=== PATIENT | female | born 1975 | race Caucasian/White ===

== ENCOUNTER 2016-08-11 10:10 | Emergency (ER) ==
[2016-08-11 10:22] VITALS: BP 138/81
--- NOTE | 2016-08-11 10:49 | PROVIDER DOCUMENTATION ---
HPI-Respiratory General - General Chief Complaint: Shortness of Breath Stated Complaint: FLU LIKE SX Time Seen by Provider: 08/11/16 10:37 Source: patient Allergies/Adverse Reactions: Patient Allergies Allergy/AdvReac Type Severity Reaction Status Date / Time No Known Allergies Allergy Verified 12/09/14 16:03 Home Medications: Hydrocodone/Acetaminophen [Noble 7.5-325 Tablet] 7.5 mg PO 04/11/16 Phentermine HCl [Adipex-P] 04/11/16 - History of Present Illness-Resp Nature of Presenting Problem: Pt is 41 y/o F presents to the ED with SOB. Pt states she has had F/chills, PND , and nasal congestion. Pt denies sore throat. Pt denies prior pneumonia. Quality of Pain: reports: aching Severity in ED: reports: mild Onset/Duration: reports: 4 days ago Timing: reports: still present, intermittent Exposure: reports: unknown cause Cough Quality/Degree: reports: moderate, productive cough, sputum Episode Frequency: frequent episodes Current Respiratory Medication Therapy: Initiated see nurses note Modifying Factors: improves with: nothing Associated Symptoms: reports: cough, fever/chills, nasal congestion, shortness of breath, wheezing. denies: earache, headache, sore throat Similar Symptoms Previously?: Yes Recently seen or treated by another doctor?: No Review of Systems - Adult - REVIEW OF SYSTEMS - ADULT Constitutional: reports: chills, fever Eyes: denies: blurred vision, double vision Ears, Nose, Mouth & Throat: reports: sinus problem (congestion), hoarseness. denies: ear pain, nose pain, throat pain Cardiovascular: reports: irregular heart rate (tachy). denies: chest pain, heart murmur Respiratory: reports: cough, shortness of breath, wheezing Gastrointestinal: denies: abdominal pain, diarrhea, nausea, vomiting Genitourinary: denies: dysuria, hematuria Musculoskeletal: denies: bone pain, joint pain, neck pain Integumentary: denies: hives, itching Neurological: denies: dizziness/vertigo, headache/migraines Psychiatric: reports: no symptoms reported Endocrine: reports: no symptoms reported Hematologic/Lymphatic: reports: no symptoms reported Allergic/Immunologic: reports: no symptoms reported All Other Systems: Reviewed and Negative Past History - Adult - PAST MEDICAL HISTORY-ADULT Review of Records: reports: Nursing Assessment Review, Medications Reviewed, Social history reviewed & non-contributory. Major Childhood Illnesses: reports: denies history Cardiovascular: reports: HTN Respiratory: reports: denies history Gastrointestinal: reports: denies history Obstetrical/Gynecological: reports: denies history Genitourinary: reports: denies history Musculoskeletal: reports: denies history Neurological: reports: denies history Endocrine/Immune: reports: denies history Other Conditions: reports: denies history - PRIOR SURGERIES/PROCEDURES Surgical/Procedure History: reports: hysterectomy, tonsillectomy, orthopedic ( extremity) (right foot) - IMMUNIZATION STATUS Childhood Immunizations: See Nurse Assessment Flu Vaccine: See Nurse Assessment - FAMILY HISTORY Family History: reviewed, not pertinent - SOCIAL HISTORY Smoking: cigarettes, greater than 1 pack/day Provider spent 3-5 mins advising pt. on dangers of tobacco.: Discussed manners to quit use, and f/u contacts for add'l counseling. Substance Use: denies Living Situation: family Physical Exam-General - PHYSICAL EXAM-ADULT Initial Vital Signs Reviewed: Yes - CONSTITUTIONAL General Appearance: appears well, alert, no apparent distress - EYES Eyes: PERRL/EOMI, pink conjunctivae - HEAD, EARS, NOSE, MOUTH & THROAT HENMT: normocephalic/atraumatic, moist mucous membranes, normal ENT inspection - NECK Neck: non-tender, full range of motion, supple, normal inspection - RESPIRATORY Respiratory: chest non-tender, rales, rhonchi, wheezing, increased rate - CARDIOVASCULAR Cardiovascular: normal peripheral pulses, no edema, tachycardia - GASTROINTESTINAL (ABDOMEN) Abdominal Exam: normal bowel sounds, non tender, soft - LYMPHATIC Lymphatic: no adenopathy - MUSCULOSKELETAL Back Exam: normal inspection, no CVA tenderness, no vertebral tenderness Extremity: normal range of motion, non-tender, normal gait - SKIN Integumentary: normal color, normal turgor, warm/dry - NEUROLOGIC Neurologic: cabin crew II-XII nml as tested, grossly normal, no motor/sensory deficits - PSYCHIATRIC Psych/Mental Status: normal mood/affect, normal thought content, normal thought process, oriented x 3 Progress - PLAN OF CARE/RESULTS Progress/Plan/Lab Results: Laboratory Tests 08/11/16 10:22 Influenza A (Rapid) NEGATIVE Influenza B (Rapid) NEGATIVE Orders Category Date Time Status CHEST-2 VIEWS [RAD] Stat Exams 08/11/16 10:[address] Stat Lab 08/11/16 10:22 Completed Vital Signs - 24 hr 08/11/16 10:19 Temperature 97.8 F Pulse Rate 107 H Respiratory 22 Rate Blood Pressure 138/81 O2 Sat by Pulse 98 Oximetry - XRAY 1 XRAY: Bilateral XRAY Study: Chest Impression: Normal XRAY Interpretation: no acute disease Departure - Departure Time of Disposition Order: 11:48 DIAGNOSIS: Bronchitis, Cold Disposition: HOME 01 Certified Medical Emergency: Emergent Condition: Good Prescriptions: Amoxicillin 875 mg PO BID #20 tablet Guaifenesin/Codeine [Robitussin-AC] 10 ml PO Q4H PRN PRN #8 oz PRN Reason: Cough Referrals: Narinder Chaudhary [Primary Care Provider] - Forms: Return to School/Parent Work Instructions: Amoxicillin capsules or tablets, Codeine; Guaifenesin tablets Attestation - Scribe Verification/Attestation Scribe:: Consuelo Kline Acting as Scribe for:: Melvin Serna Scribe documention review:: This chart was documented by a scribe and accurately reflects the service the provider performed and the decisions made by the provider.
--- NOTE | 2016-08-11 11:08 | Diag Imaging Result Document ---
PROCEDURE NAME: CHEST-2 VIEWS - 08/11/2016 CHEST, 2 VIEWS: INDICATION: Shortness of breath. FINDINGS: The cardiomediastinal silhouette is within normal limits. The pulmonary vasculature is not congested. There is mild biapical pleural thickening. There is no acute infiltrate, effusion or pneumothorax. IMPRESSION: No acute abnormalities.
== END 2016-08-11 11:48 | disposition home or self-care (01) ==
LOC: P.ED 10:10
DX: J40 Bronchitis, not specified as acute or chronic (principal); J00 Acute nasopharyngitis [common cold]; R06.02 Shortness of breath; R50.9 Fever, unspecified; R09.81 Nasal congestion; R05 Cough; R09.3 Abnormal sputum; R06.2 Wheezing; R49.0 Dysphonia; R00.0 Tachycardia, unspecified; I10 Essential (primary) hypertension; F17.210 Nicotine dependence, cigarettes, uncomplicated; Z79.899 Other long term (current) drug therapy; Z71.6 Tobacco abuse counseling
CPT/HCPCS: 71020; 87804; 99283